=== PATIENT | female | born 1985 | race Caucasian/White ===

== ENCOUNTER 2019-02-19 15:56 | Emergency (ER) | payer OTHER ==
[~2019-02-19] VITALS: Ht 162.6 cm; Wt 45.0 kg
[~2019-02-19 15:56] MED LIST: C 500 PO; GINGER ROOT550 MG PO; HYDROXYCHLOR200 MG PO; LIVER SUPPORT; PREDNISONE1 MG PO; PREDNISONE10 MG PO; ROBITUSSIN AC10 ML PO; ZITHROMAX250 MG PO
[2019-02-19] MEDS ORDERED: METHYLPRED16 MG PO (16:08)
[2019-02-19] MEDS ORDERED: CELEBREX100 M1 PO (16:08)
[2019-02-19] MEDS ORDERED: ACTEMRA162 MG/0.9 SC (16:09)
[2019-02-19] MEDS ORDERED: METHYLPRED4 MG PO (16:55)
[2019-02-19] MEDS ORDERED: CELECOXIB200 MG PO (16:57)
[2019-02-19] MEDS ORDERED: VOLTAREN1%GEL TOP (17:32)
[2019-02-19 17:35] VITALS: BP 117/67
== END 2019-02-19 17:35 | disposition home or self-care (01) | DRG 563 ==
LOC: ED 15:56
DX: S29.011A Strain of muscle and tendon of front wall of thorax, initial encounter (principal); X58.XXXA Exposure to other specified factors, initial encounter

== ENCOUNTER 2021-01-02 12:59 | Emergency (ER) | payer OTHER ==
[~2021-01-02] VITALS: Ht 162.6 cm; Wt 54.5 kg
[~2021-01-02 12:59] MED LIST changes: +ACTEMRA162 MG/0.9 SC; +CELEBREX100 M1 PO; +CELECOXIB200 MG PO; +METHYLPRED16 MG PO; +METHYLPRED4 MG PO; +VOLTAREN1%GEL TOP
[2021-01-02] MEDS ORDERED: FLEXERIL5 MG PO (13:21)
[2021-01-02 16:30] VITALS: BP 124/81
== END 2021-01-02 16:30 | disposition home or self-care (01) | DRG 552 ==
LOC: ED 12:59
DX: S16.1XXA Strain of muscle, fascia and tendon at neck level, initial encounter (principal); S40.011A Contusion of right shoulder, initial encounter; S50.01XA Contusion of right elbow, initial encounter; S60.211A Contusion of right wrist, initial encounter; W19.XXXA Unspecified fall, initial encounter